=== PATIENT | female | born 1975 | race African-American/Black ===

== ENCOUNTER → 2018-07-27 | Outpatient (CLI) | payer BC, MEDICAID ==
--- NOTE | 2018-07-28 13:21 | RADIOLOGY REPORT (SQ) ---
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 TECHNIQUE: Axial 2-D volume acquisition imaging, 3D [id number] imaging through the extracranial carotid and vertebral arteries with reformatting using 3-D MIPS. LIMITATIONS: None. FINDINGS: RIGHT CAROTID ARTERY: No stenosis or occlusive changes. Limited visualization of the orig in. LEFT CAROTID ARTERY: No stenosis or occlusive changes. Limited visualization of the origin. VERTEBRAL ARTERIES: The extracranial portions of the vertebral basilar system are with patent without stenosis. No aneurysmal dilatation or dissection is seen. OTHER: The great vessels are incompletely included in the field of view at the bottom edge. The righ t brachiocephalic artery is tortuous, bulging into the right sternal notch and supraclavicular region , an anatomic variant. IMPRESSION: Widely patent carotid bifurcations. Codominant vertebral arteries. Tortuous right brachiocephalic artery, loops in the sternal notch and right supraclavicular region COMMENT: Quality ID #[id number]: Measurements of distal internal carotid diameter were used as the denomin ator for stenosis measurement. TECHNICAL DOCUMENTATION: JOB ID: [id number] [employer]- All Rights Reserved Reading location - IP/workstation name: [email or web address]
== END ==
LOC: RAD 15:43
PROVIDERS: ATTEND Internal Medicine
DX: I72.5 Aneurysm of other precerebral arteries (principal)
CPT/HCPCS: 70547

== ENCOUNTER → 2018-09-01 | Outpatient (CLI) | payer BC | LOC: OD 14:52 | PROVIDERS: ATTEND Internal Medicine | DX: I16.0 Hypertensive urgency (principal) | CPT/HCPCS: 36415; 82088; 82382; 82530; 82570; 84244 ==

== ENCOUNTER → 2018-09-01 | Outpatient (CLI) | payer BC ==
--- NOTE | 2018-09-01 15:05 | RADIOLOGY REPORT (SQ) ---
EXAM DESCRIPTION: MRA ABDOMEN WITHOUT COMPLETED DATE/TIME: 09/01/2018 2:44 pm REASON FOR STUDY: I16.0 HYPERTENSIVE URGENCY I16.0 HYPERTENSIVE URGENCY COMPARISON: None. TECHNIQUE: Coronal and Axial imaging with T1 and T2 weighting through the abdomen. MRI a images thr ough the abdominal aorta and the bilateral renal arteries were obtained in the axial and coronal plan es. 3-D MIPs performed at the work station. CONTRAST TYPE AND DOSE: None given RENAL FUNCTION: Not indicated. LIMITATIONS: None. FINDINGS: AORT: No aneurysm. No dissection. No significant finding or stenosis. MESENTERIC VESSELS:No significant finding or stenosis. RENAL ARTERIES:No significant finding or stenosis. ABDOMINAL ORGANS: No significant finding. BONY STRUCTURES: No significant finding as visualized. OTHER: No other significant finding. IMPRESSION: Normal MRA of the abdomen. No evidence of renal artery stenosis. TECHNICAL DOCUMENTATION: JOB ID: [id number] [employer]- All Rights Reserved Reading location - IP/workstation name: [email or web address]
== END ==
LOC: RAD 13:44
PROVIDERS: ATTEND Internal Medicine
DX: I16.0 Hypertensive urgency (principal)
CPT/HCPCS: C8901